=== PATIENT | female | born 1985 | race Caucasian/White ===

== ENCOUNTER → 2017-11-28 | Outpatient (CLI) | payer OTHER ==
[~2017-11-28] MED LIST: CEPH500 PO; CYCL10 PO; DIAZ5; FLUC150A PO; HYDACE5 PO; IBUP400 PO; LORA10; Naprosyn500 MG PO; Norco 10-325 T1 EACH PO; Norco 5-325 Ta1 EACH PO; Percocet 10-321 EACH PO; Prednisone20 MG PO; SULTRIDS PO; TRAM50 PO; VICODIN HP 10-1 EACH PO; Vibramycin100 MG PO
== END ==
LOC: LAB SHORT 17:24 → LAB 17:24
PROVIDERS: Registered Nurse Community Health
DX: Z12.4 Encounter for screening for malignant neoplasm of cervix (principal)
CPT/HCPCS: 87624; G0123

== ENCOUNTER → 2018-01-03 | Outpatient (CLI) | payer OTHER | LOC: PLD 07:13 → LAB SHORT 07:13 | DX: Z86.19 Personal history of other infectious and parasitic diseases (principal); R87.89 Other abnormal findings in specimens from female genital organs | CPT/HCPCS: 88305 ==

== ENCOUNTER → 2018-01-24 | Outpatient (CLI) | payer OTHER | LOC: LAB SHORT 14:23 → LAB 14:23 | DX: N89.8 Other specified noninflammatory disorders of vagina (principal) | CPT/HCPCS: 87070; 87205 ==

== ENCOUNTER → 2019-08-13 | Outpatient (CLI) | payer OTHER ==
[2019-08-15 18:06] LABS: HPV 16 Negative (Negative); HPV 18 Negative (Negative); HPV OTHER HR TYPES Negative (Negative)
== END ==
LOC: LAB 19:22 → LAB SHORT 19:22
PROVIDERS: Registered Nurse Community Health
DX: Z12.4 Encounter for screening for malignant neoplasm of cervix (principal)
CPT/HCPCS: 87624; G0123

== ENCOUNTER → 2019-09-17 | Outpatient (CLI) | payer OTHER | LOC: LAB SHORT 08:04 → PLD 08:04 | DX: N87.0 Mild cervical dysplasia (principal) | CPT/HCPCS: 88305 ==

== ENCOUNTER 2021-05-27 10:02 | Day surgery (SDC) | payer OTHER ==
[~2021-05-27] VITALS: Ht 172.7 cm; Wt 103.6 kg
[2021-05-27] MEDS ORDERED: ATOR20 PO (10:23)
--- NOTE | 2021-05-27 11:30 | NUR ---
05/27/21 1130 SHANITA MESSINA PT UP TO RECLINER. DENIES NAUSEA AND PAIN. DRESSING C/D/I. TOLERATING PO INTAKE. WILL CTM AND ENGAGE IN DC TEACHING
== END 2021-05-27 11:49 | disposition home or self-care (01) ==
LOC: ORSCSDS 10:02
PROVIDERS: Orthopaedic Surgery
PROC: 0JPV0HZ Removal of Contraceptive Device from Upper Extremity Subcutaneous Tissue and Fascia, Open Approach (ICD-10-PCS; principal; 2021-05-27 11:15)
DX: M79.5 Residual foreign body in soft tissue (principal); Z30.9 Encounter for contraceptive management, unspecified; E78.5 Hyperlipidemia, unspecified; Z79.899 Other long term (current) drug therapy
CPT/HCPCS: J0690; J2250; J2704; J3010; J7120

== ENCOUNTER → 2021-12-28 | Outpatient (CLI) | payer OTHER ==
[~2021-12-28] MED LIST changes: +ATOR20 PO; +DOXY100 PO; +FLAGYL500 M1 PO
== END | disposition home or self-care (01) ==
LOC: LAB SHORT 13:40 → LAB 13:40
DX: R30.9 Painful micturition, unspecified (principal)
CPT/HCPCS: 87086

== ENCOUNTER 2021-12-30 18:25 | Observation (INO) | payer OTHER ==
[~2021-12-30] VITALS: Ht 172.7 cm; Wt 108.4 kg
[~2021-12-30 18:25] MED LIST changes: -DOXY100 PO; -FLAGYL500 M1 PO
[2021-12-30 19:39] LABS: BASOPHILS ABSOLUTE AUTO 0.05 K/mm3 (0.00-0.23); BASOPHILS PERCENT AUTO 0 % (0-2); EOSINOPHILS ABSOLUTE AUTO 0.16 K/mm3 (0.00-0.68); EOSINOPHILS PERCENT AUTO 1 % (0-6); Hemoglobin 14.3 g/dL (11.5-16.0); IMMATURE GRAN ABSOLUTE AUTO 0.06 K/mm3 (0.00-0.10); IMMATURE GRAN PERCENT AUTO 1 % (0-1); LYMPHOCYTES ABSOLUTE AUTO 2.46 K/mm3 (0.84-5.20); LYMPHOCYTES PERCENT AUTO 21 % (21-46); MONOCYTES ABSOLUTE AUTO 0.74 K/mm3 (0.16-1.47); MONOCYTES PERCENT AUTO 6 % (4-13); Mean Corpuscular HGB 31.6 pg (26.0-34.0); Mean Corpuscular Volume 93 fL (80-100); Mean Platelet Volume 9.5 fL (9.1-12.4); NEUTROPHILS PERCENT AUTO 70 % (41-73); Platelet Count 254 K/mm3 (150-400); RDW Coefficient Variation 12.9 % (11.7-14.2); RDW Standard Deviation 43.9 fL (35.1-46.3); Red Blood Cell Count 4.53 M/mm3 (3.80-5.20); White Blood Cell Count 11.57 K/mm3 (4.00-11.30)
[2021-12-30 20:01] LABS: Albumin, Blood 3.4 g/dL (3.4-5.0); Albumin/Globulin Ratio 0.8 (0.8-1.8); Bilirubin, Total 0.4 mg/dL (0.1-1.0); Calcium, Blood 9.4 mg/dL (8.5-10.1); Creatinine, Blood 0.61 mg/dL (0.40-1.00); Globulin, Blood 4.5 g/dL (2.2-4.0); Potassium, Blood 3.1 mmol/L (3.5-5.5); Total Protein, Blood 7.9 g/dL (6.4-8.2)
[2021-12-30 22:24] LABS: Source, Urine Clean Catch
[2021-12-30 22:32] LABS: Blood, Urine 4+ (Neg); Glucose Qualitative, Urine Neg (Neg); Ketones, Urine Neg (Neg); Leukocyte Esterase, Urine 2+ (Neg); Nitrite, Urine Pos (Neg); Protein, Urine 3+ (Neg); Specific Gravity, Urine 1.015 (1.003-1.022); Urobilinogen, Urine 3+ (Normal)
[2021-12-30 22:46] LABS: Appearance, Urine Hazy (Clear); Bilirubin, Urine 2+ (Neg); Color, Urine Orange (P-Yellow)
[2021-12-30 22:54] LABS: Bacteria Few /hpf; Mucus Light (0-Heavy); Red Blood Cells, Urine 0-2 /hpf (0-2); Squamous Epithelial Cells Rare /hpf (Few); White Blood Cells, Urine TNTC /hpf (0-5)
[2021-12-31 00:09] LABS: Candida species (DNA Probe) Negative (NEGATIVE); G. vaginalis (DNA Probe) Negative (NEGATIVE); T. vaginalis (DNA Probe) Negative (NEGATIVE)
--- NOTE | 2021-12-31 01:53 | NUR ---
PT ARRIVES TO [facility] AT 0100 FROM ED. THEY ARE ABLE TO AMBULATE TO THE BED FREELY. BED LOW AND LOKED, CALL LIGHT WITHIN REACH
--- NOTE | 2021-12-31 05:38 | NUR ---
ASSUMED CARE OF PT AT 0100. PT IS A&OX4, INDEPENDENT IN ROOM AND IS ABLE TO MAKE NEEDS KNOWN. ADMITTED FOR OBSERVATION AND TREATMENT OF POSSIBLE UTI. NO COMPLAINTS OF PAIN THIS SHIFT. PT RESTS COMFORTABLY IN BED, SLEEPS 4+ HOURS THIS SHIFT. PLAN TO MONITOR PT AND TREAT UTI WITH IV ABX. HAS 20G IV IN THE LFA THAT FLUSHES WELL AND HAS GOOD BLOOD RETURN. BED IS LOW AND LOCKED, CALL LIGHT WITHIN REACH. WILL CONTINUE TO MONITOR AND PROVIDE REPORT TO ONCOMING STAFF.
[2021-12-31 07:56] LABS: BASOPHILS ABSOLUTE AUTO 0.04 K/mm3 (0.00-0.23); BASOPHILS PERCENT AUTO 0 % (0-2); EOSINOPHILS ABSOLUTE AUTO 0.15 K/mm3 (0.00-0.68); EOSINOPHILS PERCENT AUTO 2 % (0-6); Hematocrit 38.2 % (33.0-51.0); IMMATURE GRAN ABSOLUTE AUTO 0.06 K/mm3 (0.00-0.10); IMMATURE GRAN PERCENT AUTO 1 % (0-1); LYMPHOCYTES ABSOLUTE AUTO 1.68 K/mm3 (0.84-5.20); LYMPHOCYTES PERCENT AUTO 18 % (21-46); MONOCYTES ABSOLUTE AUTO 0.75 K/mm3 (0.16-1.47); MONOCYTES PERCENT AUTO 8 % (4-13); Mean Corpuscular HGB 31.9 pg (26.0-34.0); Mean Corpuscular Volume 94 fL (80-100); Mean Platelet Volume 9.9 fL (9.1-12.4); NEUTROPHILS ABSOLUTE AUTO 6.65 K/mm3 (1.96-9.15); NEUTROPHILS PERCENT AUTO 71 % (41-73); Platelet Count 272 K/mm3 (150-400); RDW Coefficient Variation 12.9 % (11.7-14.2); RDW Standard Deviation 44.4 fL (35.1-46.3); Red Blood Cell Count 4.07 M/mm3 (3.80-5.20); White Blood Cell Count 9.33 K/mm3 (4.00-11.30)
--- NOTE | 2021-12-31 18:10 | NUR ---
SHIFT SUMMARY NO ACUTE CHANGES THIS SHIFT. PATIENT REPORTS PAIN TO ABDOMEN TO BE MUCH LESS AND BELIEVES THE ABX ARE HELPING SIGNIFICANTLY. MEDICATED PER EMAR W/ TORADOL. PATIENT UP IN ROOM & AMBULATED HALLWAYS T/O SHIFT. TOLERATING PO DIET WELL, DENIES N/V. URINATING WELL, DENIES PAIN/BURNING W/ URINATION. DR ROBERTO PLANS TO SEE WHAT VAGINAL SWABS/CULTURES RESULT & POSSIBLY SEND PATIENT HOME ON ORAL MEDICATIONS TO TREAT. CONTINUING IV ABX AT THIS TIME. WILL REPORT TO ONCOMING RN.
--- NOTE | 2022-01-01 04:04 | NUR ---
SHIFT SUMMARY PT DIAGNOSED WITH PID. PT RECIEVED 2 IV ABX T/O SHIFT. PT REPORTS ABD PAIN IS BETTER, MILD DYSURIA. VOIDING. PAIN MANAGED WIH TORADOL Q6. AMBULATES IN THE HALLWAY/BATHROOM INDEPENDTLY. PT TOOK A SHOWER LAST NIGHT. TOLERATING PO INTAKE DENIES NAUSEA AND VOMITING. VSS. DENIES CHEST PAIN, SOB, LIGHTHEADEDNESS, AND DIZZINESS. CALL LIGHT WITHIN REACH. WILL PROVIDE REPORT TO ONCOMING NURSE.
[2022-01-01 05:06] LABS: BASOPHILS ABSOLUTE AUTO 0.04 K/mm3 (0.00-0.23); BASOPHILS PERCENT AUTO 1 % (0-2); EOSINOPHILS ABSOLUTE AUTO 0.15 K/mm3 (0.00-0.68); EOSINOPHILS PERCENT AUTO 2 % (0-6); Hematocrit 38.1 % (33.0-51.0); Hemoglobin 12.8 g/dL (11.5-16.0); IMMATURE GRAN ABSOLUTE AUTO 0.06 K/mm3 (0.00-0.10); IMMATURE GRAN PERCENT AUTO 1 % (0-1); LYMPHOCYTES ABSOLUTE AUTO 2.11 K/mm3 (0.84-5.20); LYMPHOCYTES PERCENT AUTO 26 % (21-46); MONOCYTES ABSOLUTE AUTO 0.91 K/mm3 (0.16-1.47); MONOCYTES PERCENT AUTO 11 % (4-13); Mean Corpuscular HGB 31.6 pg (26.0-34.0); Mean Corpuscular HGB Conc 33.6 g/dL (31.5-36.5); Mean Corpuscular Volume 94 fL (80-100); Mean Platelet Volume 9.5 fL (9.1-12.4); NEUTROPHILS ABSOLUTE AUTO 4.76 K/mm3 (1.96-9.15); NEUTROPHILS PERCENT AUTO 59 % (41-73); Platelet Count 273 K/mm3 (150-400); RDW Coefficient Variation 12.6 % (11.7-14.2); RDW Standard Deviation 43.4 fL (35.1-46.3); Red Blood Cell Count 4.05 M/mm3 (3.80-5.20); White Blood Cell Count 8.03 K/mm3 (4.00-11.30)
[2022-01-01] MEDS ORDERED: DOXY100 PO ×2 (11:21)
[2022-01-01] MEDS ORDERED: FLAGYL500 M1 PO ×2 (11:22)
--- NOTE | 2022-01-01 13:22 | NUR ---
DISCHARGE VSS ON RA. ABDOMINAL PAIN IS MINIMAL AND MANAGED PER EMAR. EATING, DRINKING, & VOIDING WELL. AMBULATIING HALLWAYS AND INDEPENDENT IN ROOM. DISCUSSED DISCHARGE INSTRUCTIONS AND SENT WITH PATIENT. SENT SCRIPTS FOR DOXYCYCLINE & FLAGY PO WITH PATIENT. DECLINED W/C, AMBULATED OUT.
[2022-01-02 00:08] LABS: CHLAMYDIA TRACHOMATIS, NAA Negative (Negative)
== END 2022-01-01 13:20 | disposition home or self-care (01) ==
LOC: ER 18:25 → SURS 18:26 → ER 12-31 00:50 → SURS 12-31 01:07
PROVIDERS: Physician Assistant; ADMIT Obstetrics & Gynecology
DX: N70.11 Chronic salpingitis (principal); N30.00 Acute cystitis without hematuria; N83.201 Unspecified ovarian cyst, right side; Z88.5 Allergy status to narcotic agent; Z88.2 Allergy status to sulfonamides; Z88.8 Allergy status to other drugs, medicaments and biological substances; F17.200 Nicotine dependence, unspecified, uncomplicated; E78.00 Pure hypercholesterolemia, unspecified
CPT/HCPCS: 36415; 76830; 76856; 80053; 81001; 81025; 83605; 85025; 85651; 87086; 87480; 87491; 87510; 87591; 87660; 96365; 96375; 99285-25; A9270; J0696; J1885; J2270; J2405; J7030; J7040

== ENCOUNTER → 2022-01-17 | Outpatient (CLI) | payer OTHER ==
[~2022-01-17] MED LIST changes: +DOXY100 PO; +FLAGYL500 M1 PO
[2022-01-17 20:52] LABS: BASOPHILS ABSOLUTE AUTO 0.05 K/mm3 (0.00-0.23); BASOPHILS PERCENT AUTO 1 % (0-2); EOSINOPHILS ABSOLUTE AUTO 0.18 K/mm3 (0.00-0.68); EOSINOPHILS PERCENT AUTO 2 % (0-6); Hematocrit 41.5 % (33.0-51.0); Hemoglobin 13.7 g/dL (11.5-16.0); IMMATURE GRAN ABSOLUTE AUTO 0.03 K/mm3 (0.00-0.10); IMMATURE GRAN PERCENT AUTO 0 % (0-1); LYMPHOCYTES PERCENT AUTO 33 % (21-46); MONOCYTES ABSOLUTE AUTO 0.58 K/mm3 (0.16-1.47); MONOCYTES PERCENT AUTO 8 % (4-13); Mean Corpuscular HGB 31.4 pg (26.0-34.0); Mean Corpuscular Volume 95 fL (80-100); Mean Platelet Volume 10.1 fL (9.1-12.4); NEUTROPHILS ABSOLUTE AUTO 4.16 K/mm3 (1.96-9.15); NEUTROPHILS PERCENT AUTO 56 % (41-73); Platelet Count 393 K/mm3 (150-400); RDW Coefficient Variation 13.3 % (11.7-14.2); RDW Standard Deviation 46.2 fL (35.1-46.3); Red Blood Cell Count 4.37 M/mm3 (3.80-5.20)
== END | disposition home or self-care (01) ==
LOC: LAB SHORT 20:44 → LAB 20:44
PROVIDERS: Family Medicine
DX: R10.9 Unspecified abdominal pain (principal)
CPT/HCPCS: 85025; 86141